=== PATIENT | male | born 1965 | race Caucasian/White ===

== ENCOUNTER 2023-12-02 06:05 | Day surgery (SDC) | payer MEDICARE ==
[2023-12-02] MEDS ORDERED: Bupivacaine 0.5% 50 ML MDV ONE (06:42)
[2023-12-02] MEDS ORDERED: Bupivacaine 0.5%/EPINEPHrine 1:200,000 50 ML MDV ONE (06:42)
[2023-12-02] MEDS ORDERED: Lidocaine 1% with EPINEPHrine 1:100,000 50 ML MDV ONE (06:42)
[2023-12-02] MEDS ORDERED: Hydrocortisone Sodium Succinate 100 MG/2 ML SDV IVPUSH ONE (07:00)
[2023-12-02] MEDS ORDERED: Scopalamine 1mg/3day Transdermal Patch TOP SCH (07:00)
[2023-12-02] MEDS ORDERED: Sodium Chloride 0.9% 1,000 ML IV SCH (07:00)
[2023-12-02] MEDS ORDERED: Midazolam 1 MG/ML 2 ML SDV ONE (07:02)
[2023-12-02] MEDS ORDERED: Propofol 200 MG/20 ML SDV ONE ×4 (07:02→09:33)
[2023-12-02] MEDS ORDERED: fentaNYL 100 MCG/2 ML SDV ONE ×3 (07:02→09:46)
[2023-12-02] MEDS ORDERED: Desmopressin 20 MCG in Sodium Chloride 0.9% 50 ML IV ONE (07:30)
[2023-12-02] MEDS ORDERED: Ondansetron 4 MG/2 ML SDV IVPUSH ONE (07:30)
[2023-12-02] MEDS ORDERED: Clindamycin in 0.9 % Sod Chlor 600 MG in Premix Bag 1 BAG IV ONE ×2 (08:00)
[2023-12-02] MEDS ORDERED: metroNIDAZOLE/Normal Saline 500 MG in Premix Bag 1 BAG IV ONE (08:00)
[2023-12-02] MEDS ORDERED: Ropivacaine 38 ML, dexAMETHasone 8 MG, EPINEPHrine 0.4 MG, Sodium Chloride 0.9% 39.6 ML NERVRT SCH ×4 (08:30)
[2023-12-02] MEDS ORDERED: Lactated Ringers 1,000 ML ONE (09:54)
[2023-12-02] MEDS ORDERED: Acetaminophen/HYDROcodone 325-5 MG Tab PO ONE (10:45)
== END 2023-12-02 12:13 | disposition home or self-care (01) ==
LOC: JP.SDS 06:05
PROVIDERS: ATTEND Surgery
DX: K40.01 Bilateral inguinal hernia, with obstruction, without gangrene, recurrent (principal); J44.9 Chronic obstructive pulmonary disease, unspecified; E11.22 Type 2 diabetes mellitus with diabetic chronic kidney disease; I25.10 Atherosclerotic heart disease of native coronary artery without angina pectoris; K21.9 Gastro-esophageal reflux disease without esophagitis
CPT/HCPCS: 49521; 64486; 64488; A9270; C1713; C1781; J0171; J1100; J1720; J1836; J2250; J2405; J2597; J2704; J2795; J3010; J3490; J7030; J7120

== ENCOUNTER 2024-08-28 11:49 | Emergency (ER) | payer MEDICARE ==
[2024-08-28] MEDS: HYDROmorphone 1 MG/ML Syringe IM ONE (12:52)
== END 2024-08-28 13:21 | disposition home or self-care (01) ==
LOC: JP.ED 11:49
DX: M54.41 Lumbago with sciatica, right side (principal); J44.9 Chronic obstructive pulmonary disease, unspecified; E11.9 Type 2 diabetes mellitus without complications; Z86.16 Personal history of COVID-19; Z79.899 Other long term (current) drug therapy; Z88.0 Allergy status to penicillin; Z88.1 Allergy status to other antibiotic agents; Z88.2 Allergy status to sulfonamides; Z91.018 Allergy to other foods
CPT/HCPCS: 96372; 99283; J1171